=== PATIENT | male | born 1955 | race Caucasian/White ===

== ENCOUNTER 2020-01-20 10:15 | Emergency (ER) | payer OTHER, SELFPAY ==
--- NOTE | 2020-01-20 | RAD_ITS ---
STUDY: X-RAY CHEST REASON FOR EXAM: Male, 64 years old. COUGH, INCREASED WEAKNESS, FEVER, LOSS OF TASTE AND SMELL -- SYMPTOMS SINCE 01/08 TECHNIQUE: Single AP portable view of the chest. COMPARISON: None. FINDINGS: Ill-defined subpleural groundglass opacities are seen more prominent in the lung bases , may represent atypical pneumonia or viral pneumonia (COVID-19 ?). There is no demonstrated pleural abnormality. Normal size heart. Normal mediastinum and kayy. Normal visualized pulmonary arteries. Normal visualized aortic arch and descending thoracic aorta. Normal visualized thoracic spine. Normal visualized ribs, clavicles, and shoulders. There is no demonstrated abnormality of the visualized soft tissue structures of the upper abdomen. RAD/Chest 1 View (Portable) IMPRESSION: Ill-defined subpleural groundglass opacities are seen more prominent in the lung bases , may represent atypical pneumonia or viral pneumonia (COVID-19 ?). Electronically Signed: Chris Marr, at 11:58 EDT Tel , Service support ,
[2020-01-20 10:18] VITALS: BP 121/57; PULSE 76; RESP 17; TEMP 36.7; O2SAT 95; BMI 25.7
[2020-01-20] MEDS: 0.9% Normal Saline 1,000 ML 1000 ML IV (10:58)
[2020-01-20 11:00] LABS: Absolute Lymphocyte Count 0.88 X10^3/uL (0.83-4.51); Absolute Neutrophil Count 8.4 X10^3/uL (2.0-7.7); Basophil# 0.02 X10^3/uL; Basophil% 0.2 % (0-1); Eosinophil# 0.11 X10^3/uL; Eosinophils% 1.1 % (0-5); Hematocrit 40.4 % (40-54); Lymphocyte # 0.88 X10^3/ul (4.0); Lymphocyte % 8.8 % (19-41); Mean Corp Hgb Conc 32.2 g/dL (32-36); Mean Corpuscular Hgb 28.7 pg (27.0-32.0); Mean Corpuscular Volume 89.2 fL (80-94); Mean Platelet Vol. 9.2 fl (6.2-12.0); Monocyte# 0.54 X10^3/uL; Monocyte% 5.4 % (0-10); NRBC Flagged by Analyzer 0 % (0-5); Neutrophil # 8.35 X10^3/uL (2.7-7.7); Neutrophil % 83.6 % (47-70); Platelet Count 304 K/mm3 (150-450); RBC Distribution Width CV 13.2 % (11.6-14.6); Red Blood Count 4.53 M/mm3 (4.6-6.2)
[2020-01-20 11:17] LABS: ALB/GLOB Ratio 0.6 RATIO (0.9-2.4); AST(SGOT) 69 U/L (15-37); Alanine Aminotransfer ALT/SGPT 120 U/L (16-61); Albumin, Serum 2.6 g/dL (3.2-5.0); Alkaline Phosphatase 182 U/L (45-117); Anion Gap 5 (5-15); BUN 22 mg/dL (7-18); BUN/Creat Ratio 13.8 RATIO (10-20); Calcium,Total 8.6 mg/dL (8.5-10.1); Chloride 104 mmol/L (98-107); Creatinine, Serum 1.59 mg/dL (0.70-1.30); EST Glomerular Filtration Rate 47 mL/min (>60); Est Glom Filt Rate - Afr Amer 57 mL/min (>60); Estimated Creatinine Clearance 46.94 ml/min; Globulin 4.4 g/dL (2.2-4.2); Glucose 148 mg/dL (74-106); Magnesium 2.5 mg/dL (1.6-2.6); Potassium 3.6 mmol/L (3.5-5.1); Sodium Level 138 mmol/L (136-145)
--- NOTE | 2020-01-20 11:28 | ED.VIS.URI ---
History of Present Illness Chief Complaint: Cough Narrative: Patient presenting for evaluation secondary to a cough. Patient believes that he has been suffering with coronavirus symptoms for approximately a week. Patient's had symptoms prior to this, about a week ago the patient developed generalized fatigue, diarrhea, fevers as high as 102 and over the course of the last 3 days he has developed a cough and some shortness of breath. Patient states that he also lost his sense of smell and taste and has had significantly decreased appetite. He has been able to tolerate fluids. Patient denies any underlying history of lung disease. He does have a history of hypothyroidism but is been able to take his medications. He is otherwise healthy. Review of systems otherwise negative. Past Medical History - Allergies and Home Meds Allergies/Adverse Reactions: Allergies lactose Allergy (Verified 01/20/20 10:16) Diarrhea Penicillins Allergy (Verified 01/20/20 10:16) Hives Primary Care Physician: Poli Monahan MD [Primary Care Provider] - Prior records reviewed: Yes Past Medical History: - - Hypothyroidism Lives: Spouse/ Significant Other Smoking Status: Never smoker Alcohol: None Drugs: None Review of Systems General: Reports: Fever, Malaise Eyes: Denies: Visual changes - bilaterally, Diplopia ENT: Denies: Rhinorrhea, Sore throat Cardiovascular: Denies: Chest pain, Palpitations Respiratory: Reports: Cough, Dyspnea on exertion Gastrointestinal: Reports: Diarrhea Genitourinary: Denies: Dysuria, Hematuria, Frequency Musculoskeletal: Denies: Back pain, Extremity Pain Skin: Denies: Rash, Wounds Neurological: Denies: Headache, Weakness, Numbness Physical Exam Vital Signs/Narrative: Vital Signs Temp Pulse Resp BP Pulse Ox 01/20/20 10:18 98.1 F 76 17 121/57 H 95 Inital Vital Signs reviewed: Yes General: Well nourished, Well developed Head: Normocephalic, Atraumatic Eyes: Perrl, EOMI Ears: Normal external canal, TM's clear Nose: Normal Inspection, No Rhinorrhea Mouth/Throat: Normal Inspection, No Posterior Erythema, Dry Mucous Membranes Neck: Supple, Nontender Cardiovascular: Regular rate, Regular rhythm, No murmurs Respiratory: No distress, CTA bilaterally, Chest nontender Abdomen: Soft, Nontender, Nondistended, Normal bowel sounds Back: Nontender, Normal Inspection Extremities: Nontender, No edema Skin: Normal color, No rash Neurological: Alert, Oriented x3, Cranial nerves II-XII grossly intact, Normal Strength, Normal Sensation Psychological: Normal affect Diagnostic/Tx/Re-eval Chest X-Ray - ED: Read by ED Physician, - - Ill-defined infiltrates consistent with coronavirus infection Clinical Impression(s) from Imaging Studies Chest X-Ray 01/20/20 00:00 IMPRESSION: Ill-defined subpleural groundglass opacities are seen more prominent in the lung bases , may represent atypical pneumonia or viral pneumonia (COVID-19 ?). Electronically Signed: Chris Marr, at 11:58 EDT Tel , Service support , Laboratory Data 01/20/20 01/20/20 10:51 10:51 WBC 10.0 RBC 4.53 L Hgb 13.0 Hct 40.4 MCV 89.2 MCH 28.7 MCHC 32.2 RDW Std Deviation 43.0 RDW Coeff of Alisa 13.2 Plt Count 304 MPV 9.2 Immature Gran % (Auto) 0.900 Neut % (Auto) 83.6 H Lymph % (Auto) 8.8 L [place] % (Auto) 5.4 Eos % (Auto) 1.1 Baso % (Auto) 0.2 Absolute Neuts (auto) 8.4 H Absolute Lymphs (auto) 0.88 Nucleated RBC % 0 Sodium 138 Potassium 3.6 Chloride 104 Carbon Dioxide 29.0 Anion Gap 5 BUN 22 H Creatinine 1.59 H Estim Creat Clear Calc 46.94 Est GFR (MDRD) Af Amer 57 L Est GFR (MDRD) Non-Af 47 L BUN/Creatinine Ratio 13.8 Glucose 148 H Calcium 8.6 Magnesium 2.5 Total Bilirubin 1.30 H AST 69 H ALT 120 H Alkaline Phosphatase 182 H Total Protein 7.0 Albumin 2.6 L Globulin 4.4 H Albumin/Globulin Ratio 0.6 L - Medical Decision Making Patient presented secondary to possible complications from coronavirus. He is not hypoxic. IV was established she was given a gentle fluid bolus. Patient's creatinine is 1.5, there is no prior for comparison. No significant electrolyte derangement. Modest elevation of the patient's transaminases, likely secondary to a coronavirus infection. Chest x-ray also confirmed this. Patient at this point is having complications of coronavirus. Superinfection with pneumonia is not totally ruled out, patient will be given azithromycin. He has self treated at home with albuterol, and had some modest improvement. He will also be given a prescription for this. He was educated on signs and symptoms which to return. ED Disposition - Plan for ED Patient: Disposition: Home or Assisted Living Diagnosis: COVID-19 Instructions: ED FLU Adult Prescriptions: Albuterol Aerosols [Ventolin Aerosols] 2.5 mg INHALATION Q4H PRN #25 vial Prescription Printed Azithromycin [Zithromax Z-Lexx] 250 mg PO UD #1 box Prescription Printed Referrals: Poli Monahan MD [Primary Care Provider] - 1 Week if not improving
[2020-01-20 11:43] VITALS: BP 148/67; PULSE 84; RESP 16; TEMP 36.6; O2SAT 97
[2020-01-20 12:36] VITALS: BP 118/71; PULSE 71; RESP 18; TEMP 36.7; O2SAT 99
== END 2020-01-20 12:37 | disposition home or self-care (01) ==
PROVIDERS: Emergency Provider Emergency Medicine
DX: U07.1 COVID-19 (principal); E03.9 Hypothyroidism, unspecified; Z88.0 Allergy status to penicillin
CPT/HCPCS: 71045; 80053; 83735; 85025; 87635; 99282; J7030; U0003

== ENCOUNTER 2025-04-15 08:37 | Day surgery (SDC) | payer MEDICARE, SELFPAY ==
[2025-04-15] VITALS (9 sets, daily range): BP systolic 85–112; BP diastolic 45–69; PULSE 57–66; RESP 14–18; TEMP 36.2–36.7; O2SAT 95–98; BMI 27.3
--- OUTSIDE RECORDS SUMMARY | 2025-04-15 09:00 | XMS RPT_ITS | CCD ---
Author Organization [facility] Care Team Providers Care Bulkhead Carpenter Name Role Phone ADAMARIS MONAHAN Consulting Unavailable ETHAN HOPKINS APRN Admitting Unavailab ETHAN Barbour APRN Primary Care Unavailab ETHAN Barbour APRN Attending Unavailab le PROVIDER, UNKNOWN Consulting Unavailable PROVIDER, UNKNOWN Consulting Unavailable PROVIDER, UNKNOWN Consulting Unavailable Allergies Allergy Classification Reported Allergen(s) Allergy Type Date of Onset Reaction(s) Facility (1 source) Aspirin Drug Allergy [facility] (1 source) Penicillins Drug allergy (disorder) [facility] Results Test Name Value Interpretation Reference Range Facility CBC (INCLUDES DIFF/PLT)on Basophils (Bld) [#/Vol] 0.04 10*3/uL Normal 0-200 [facility] Comment on above: Performed By: #### 1 0231, 890, 5499 #### [facility] [place] [address] [employer] R[address] Attendant: Quan French MD Basophils/100 WBC (Bld) 0.5 % Normal [facility] Comment on above: Performed By: #### 1 0231, 7599, 7899 #### [facility] [place] [address] [employer] Attendant: Quan French MD Eosinophils (Bld) [#/Vol] 0.464 10*3/uL Normal 15-500 [facility] Comment on above: Performed By: #### 1 0231, 853, 4199 #### [facility] [place] [address] [employer] Attendant: Quan French MD Eosinophils/100 WBC (Bld) 5.8 % Normal [facility] Comment on above: Performed By: #### 1 023, 7599, 6399 #### [facility] of [place] [address] [employer] [address] Attendant: Quan French MD Erythrocyte distribution width (RBC) [Ratio] 13.2 % Normal 11.0-15.0 [facility] Comment on above: Performed By: #### 1 023, 7599, 6399 #### [facility] [place] [address] [employer] [address] Attendant: Quan French MD Hematocrit (Bld) [Volume fraction] 44.5 % Normal 38.5-50.0 [facility] Comment on above: Performed By: #### 1 023, 7599, 6399 #### [facility] [place] [address] [address] Attendant: Quan French MD Hemoglobin (Bld) [Mass/Vol] 14.3 g/dL Normal 13.2-17.1 [facility] Comment on above: Performed By: #### 1 023, 7599, 6399 #### [facility] [place] [address] [employer] [address] Attendant: Quan French MD Lymphocytes (Bld) [#/Vol] 2.76 10*3/uL Normal 850-3900 [facility] Comment on above: Performed By: #### 1 023, 7599, 6399 #### [facility] [place] [address] [address] Attendant: Quan French MD Lymphocytes/100 WBC (Bld) 34.5 % Normal [facility] Comment on above: Performed By: #### 1 0231, 7599, 6399 #### [facility] [place] [address] [employer] [address] Attendant: Quan French MD MCH (RBC) [Entitic mass] 29.9 pg Normal 27.0-33.0 [facility] Comment on above: Performed By: #### 1 0231, 7599, 6399 #### [facility] [place] [address] [employer] [address] Attendant: Quan French MD MCHC (RBC) [Mass/Vol] 32.1 g/dL Normal 32.0-36.0 [facility] Comment on above: Result Comment: For adults, a slight decrease in the calculated MCHC value (in the range of 30 to 32 g/dL) is most likely not clinically significant; however, it should be interpreted with caution in correlation with other red cell parameters and the patient's clinical condition. Performed By: #### 1 023, 7599, 6399 #### [facility] [place] [address] [employer] [address] Attendant: Quan French MD MCV (RBC) [Entitic vol] 92.9 fL Normal 80.0-100.0 [facility] Comment on above: Performed By: #### 1 230, 7599, 6399 #### [facility] [place] [address] [employer] [address] Attendant: Quan French MD Monocytes (Bld) [#/Vol] 0.584 10*3/uL Normal 200-950 [facility] Comment on above: Performed By: #### 1 023, 7599, 6399 #### [facility] [place] [address] [address] Attendant: Quan French MD Monocytes/100 WBC (Bld) 7.3 % Normal [facility] Comment on above: Performed By: #### 1 023, 7599, 6399 #### [facility] [place] [address] [address] Attendant: Quan French MD Neutrophils (Bld) [#/Vol] 4.152 10*3/uL Normal 6133-6459 [facility] Comment on above: Performed By: #### 1 023, 7599, 6399 #### [facility] [place] [address] [address] Attendant: Quan French MD Neutrophils/100 WBC (Bld) 51.9 % Normal [facility] Comment on above: Performed By: #### 1 0231, 0, 6399 #### [facility] [place] [address] [employer] [address] Attendant: Quan French MD Platelet mean volume (Bld) [Entitic vol] 10.1 fL Normal 7.5-12.5 [facility] Comment on above: Performed By: #### 1 0231, 7599, 6399 #### [facility] of [address], [address] [place] [address] Ice Rink Attendant: Quan French MD Platelets (Bld) [#/Vol] 263 10*3/uL Normal 140-400 [facility] Comment on above: Performed By: #### 1 0231, 7599, 6399 #### [facility] of [address], [address] [place] [address] Ice Rink Attendant: Quan French MD RBC (Bld) [#/Vol] 4.79 10*6/uL Normal 4.20-5.80 [facility] Comment on above: Performed By: #### 1 0231, 7599, 6399 #### [facility] [place] [address] [address] Attendant: Quan French MD WBC (Bld) [#/Vol] 8.0 10*3/uL Normal 3.8-10.8 [facility] Comment on above: Performed By: #### 1 023, 7599, 6399 #### [facility] [place] [address] [address] Attendant: Quan French MD [facility] 01-31-2025 Albumin [Mass/Vol] 4.5 g/dL Normal 3.6-5.1 [facility] Comment on above: Performed By: #### 1 0231, 760, 6399 #### [facility] [place] [address] [employer] [address] Attendant: Quan French MD Albumin/Globulin [Mass ratio] 1.7 {ratio} Normal 1.0-2.5 [facility] Comment on above: Performed By: #### 1 0231, 7599, 6399 #### [facility] [place] [address] [employer] [address] Attendant: Quan French MD ALP [Catalytic activity/Vol] 68 U/L Normal 35-144 [facility] Comment on above: Performed By: #### 1 0231, 7599, 6399 #### [facility] of [address], [address] [place] [address] [employer] Rink Attendant: Quan French MD ALT [Catalytic activity/Vol] 16 U/L Normal 9-46 [facility] Comment on above: Performed By: #### 1 023, 7599, 6399 #### [facility] [place] [address] [employer] [address] Attendant: Quan French MD AST [Catalytic activity/Vol] 18 U/L Normal 10-35 [facility] Comment on above: Performed By: #### 1 023, 7599, 6399 #### [facility] [place] [address] [employer] [address] Attendant: Quan French MD Bilirubin [Mass/Vol] 1.9 mg/dL High 0.2-1.2 [facility] Comment on above: Performed By: #### 1 230, 7599, 6399 #### [facility] [place] [address] [employer] [address] Attendant: Quan French MD Calcium [Mass/Vol] 9.3 mg/dL Normal 8.6-10.3 [facility] Comment on above: Performed By: #### 1 023, 7599, 6399 #### [facility] [place] [address] [employer] [address] Attendant: Quan French MD Chloride [Moles/Vol] 105 mmol/L Normal 98-110 [facility] Comment on above: Performed By: #### 1 023, 7599, 6399 #### [facility] of [address], [address] [place] [address] Ice Rink Attendant: Quan French MD CO2 [Moles/Vol] 26 mmol/L Normal 20-32 [facility] Comment on above: Performed By: #### 1 0231, 7600, 6399 #### [facility] of [address], [address] [place] [address] [employer] Rink Attendant: Quan French MD Creatinine [Mass/Vol] 1.50 mg/dL High 0.70-1.35 [facility] Comment on above: Performed By: #### 1 0231, 7599, 6399 #### [facility] [place] [address] [address] Attendant: Quan French MD GFR/1.73 sq M.predicted among non-blacks MDRD (S/P/Bld) [Vol rate/Area] 50 mL/min/{1.73_m2} Low > OR = 60 [facility] Comment on above: Performed By: #### 1 023, 7599, 6399 #### [facility] [place] [address] [address] Attendant: Quan French MD Globulin (S) [Mass/Vol] 2.6 g/dL Normal 1.9-3.7 [facility] Comment on above: Performed By: #### 1 023, 7599, 6399 #### [facility] [place] [address] [employer] [address] Attendant: Quan French MD Glucose [Mass/Vol] 96 mg/dL Normal 65-99 [facility] Comment on above: Result Comment: Fasting reference interval Performed By: #### 1 0231, 7599, 6399 #### [facility] [place] [address] [employer] [address] Attendant: Quan French MD Potassium [Moles/Vol] 4.3 mmol/L Normal 3.5-5.3 [facility] Comment on above: Performed By: #### 1 0231, 7600, 6399 #### [facility] of [address], [address] [place] [address] Ice Rink Attendant: Quan French MD Protein [Mass/Vol] 7.1 g/dL Normal 6.1-8.1 [facility] Comment on above: Performed By: #### 1 0231, 7600, 6399 #### [facility] of [address], [address] [place] [address] Ice Rink Attendant: Quan French MD Sodium [Moles/Vol] 141 mmol/L Normal 135-146 [facility] Comment on above: Performed By: #### 1 0231, 0, 6399 #### [facility] of [address], [address] [place] [address] [employer] Rink Attendant: Quan French MD Urea nitrogen [Mass/Vol] 23 mg/dL Normal 7-25 [facility] Comment on above: Performed By: #### 1 0231, 7599, 6399 #### [facility] of [address], [address] [place] [address] [employer] Rink Attendant: Quan French MD Urea nitrogen/Creatinine [Mass ratio] 15 mg/mg Normal 6-22 [facility] Comment on above: Performed By: #### 1 0231, 7599, 6399 #### [facility] of [address], [address] [place] [address] [employer] Rink Attendant: Quan French MD LIPID PANEL, [address] Cholesterol [Mass/Vol] 214 mg/dL High <200 [facility] Comment on above: Performed By: #### 1 0231, 7600, 6399 #### [facility] of [address], [address] [place] [address] [employer] Rink Attendant: Quan French MD Cholesterol in HDL [Mass/Vol] 51 mg/dL Normal > OR = 40 [facility] Comment on above: Performed By: #### 1 0231, 7600, 6399 #### [facility] of [address], [address] [place] [address] [employer] Rink Attendant: Quan French MD Cholesterol in LDL [Mass/Vol] 141 mg/dL High [facility] Comment on above: Result Comment: Refe rence range: <100 Desirable range <100 mg/dL for primary prevention; <70 mg/dL for patients with CHD or diabetic patients with > or = 2 CHD risk factors. LDL-C is now calculated using the Ariela calculation, which is a validated novel method providing better accuracy than the Friedewald equation in the estimation of LDL-C. Boone SS et al. NATALY. 2013;310(19): 5189-2169 (http://education.Snapcious/faq/RFD178) Performed By: #### 1 0231, 0, 1199 #### [facility] [address], [address] [place] [address] [employer] Rink Attendant: Quan French MD Cholesterol.total/C holesterol in HDL [Mass ratio] 4.2 {ratio} Normal <5.0 [facility] Comment on above: Performed By: #### 1 023, 7599, 7099 #### [facility] [address], [address] [place] [address] [employer] Rink Attendant: Quan French MD NON HDL CHOLESTEROL 163 mg/dL (calc) High <130 [facility] Comment on above: Result Comment: For patients with diabetes plus 1 major ASCVD risk factor, treating to a non-HDL-C goal of <100 mg/dL (LDL-C of <70 mg/dL) is considered a therapeutic option. Performed By: #### 1 023, 7599, 4999 #### [facility] [address], [address] [place] [address] [employer] Rink Attendant: Quan French MD Triglyceride [Mass/Vol] 108 mg/dL Normal <150 [facility] Comment on above: Performed By: #### 1 023, 325, 6699 #### [facility] [address], [address] [place] [address] Ice Rink Attendant: Quan French MD T3, FREE [CCL]on 08-27-2024 Free T3 [Mass/Vol] 2.7 pg/mL Normal 2.3-4.1 [facility] Comment on above: Result Comment: [facility] [address] [id number] Andrea Gerard III, M.D. [id number] Performed By: #### 2 69842 #### [facility],[address] [place] [address] TSHon 08-26-2024 TSH Qn 0.85 m[IU]/L Normal 0.35 - 3.74 [facility] Comment on above: Performed By: #### 2 46241 #### [facility],[address] [place], [place] [address] CORONAVIRUS 19, DARWIN SENDOUTo n 01-21-2020 COVID-19,DARWIN Not Detected Normal Not Detected [facility] Comment on above: Result Comment: This nucleic acid amplification test was developed and its performance characteristics determined by [employer]. Nucleic acid amplification tests include PCR and TMA. This test has not been FDA cleared or approved. This test has been authorized by FDA under an Emergency Use Authorization (EUA). This test is only authorized for the duration of time the declaration that circumstances exist justifying the authorization of the emergency use of in vitro diagnostic tests for detection of SARS-CoV-2 virus and/or diagnosis of COVID-19 infection under section 564(b)(1) of the Act, 21 U.S.C. 360bbb-3(b) (1), unless the authorization is terminated or revoked sooner. When diagnostic testing is negative, the possibility of a false negative result should be considered in the context of a patient's recent exposures and the presence of clinical signs and symptoms consistent with COVID-19. An individual without symptoms of COVID-19 and who is not shedding SARS-CoV-2 virus would expect to have a negative (not detected) result in this assay. Performed By: #### L 3400.2408 #### [facility] (refer to report for specific site) refer to report for address and phone number CBC W/Diff, Automatedon 10-0 Absolute Neut 8.4 X10 3/uL High 2.0-7.7 [facility] Comment on above: Performed By: #### L 100.0100 #### [facility] [address] [place], [address] Basophils/100 WBC (Bld) 0.2 % Normal 0-1 [facility] Comment on above: Performed By: #### L 100.0100 #### [facility] [address] [place], [address] Eosinophils/100 WBC (Bld) 1.1 % Normal 0-5 [facility] Comment on above: Performed By: #### L 100.0100 #### [facility] [address] [place], [address] Erythrocyte distribution width (RBC) [Ratio] 13.2 % Normal 11.6-14.6 [facility] Comment on above: Performed By: #### L 100.0100 #### [facility] [address] [place], [address] Hematocrit (Bld) [Volume fraction] 40.4 % Normal 40-54 [facility] Comment on above: Performed By: #### L 100.0100 #### [facility] [address] [place], [address] Hemoglobin (Bld) [Mass/Vol] 13.0 g/dL Normal 13.0-16.5 [facility] Comment on above: Performed By: #### L 100.0100 #### [facility] [address] [place], [address] IM GRAN % 0.900 % Normal 0.0-0.9 [facility] Comment on above: Result Comment: IG% - Immature Granulocytes (promyelocytes, myelocytes and metamyelocytes) > 1% indicates that a LEFT SHIFT is Present. Performed By: #### L 100.0100 #### [facility] [address] [place], [address] Lymphocytes (Bld) [#/Vol] 0.88 X10 3/uL Normal 0.83-4.51 [facility] Comment on above: Performed By: #### L 100.0100 #### [facility] [address] [place], [address] Lymphocytes/100 WBC (Bld) 8.8 % Low 19-41 [facility] Comment on above: Performed By: #### L 100.0100 #### [facility] [address] [place], [address] MCH (RBC) [Entitic mass] 28.7 pg Normal 27.0-32.0 [facility] Comment on above: Performed By: #### L 100.0100 #### [facility] [address] [place], [address] MCHC (RBC) [Mass/Vol] 32.2 g/dL Normal 32-36 [facility] Comment on above: Performed By: #### L 100.0100 #### [facility] [address] [place], [address] MCV (RBC) [Entitic vol] 89.2 fL Normal 80-94 [facility] Comment on above: Performed By: #### L 100.0100 #### [facility] [address] [place], [address] Monocytes/100 WBC (Bld) 5.4 % Normal 0-10 [facility] Comment on above: Performed By: #### L 100.0100 #### [facility] [address] [place], [address] Neutrophils/100 WBC (Bld) 83.6 % High 47-70 [facility] Comment on above: Performed By: #### L 100.0100 #### [facility] [address] [place], [address] NRBC, FLAGGED 0 % Normal 0-5 [facility] Comment on above: Performed By: #### L 100.0100 #### [facility] [address] [place], [address] Platelet mean volume (Bld) [Entitic vol] 9.2 fL Normal 6.2-12.0 [facility] Comment on above: Performed By: #### L 100.0100 #### [facility] [address] [place], [address] Platelets (Bld) [#/Vol] 304 10*3/uL Normal 150-450 [facility] Comment on above: Performed By: #### L 100.0100 #### [facility] [address] [place], [address] RBC (Bld) [#/Vol] 4.53 M/mm3 Low 4.6-6.2 [facility] Comment on above: Performed By: #### L 100.0100 #### [facility] [address] [place], [address] RDW SD 43.0 fl Normal 35.1-43.9 [facility] Comment on above: Performed By: #### L 100.0100 #### [facility] [address] [place], [address] WBC (Bld) [#/Vol] 10.0 10*3/uL Normal 4.4-11.0 [facility] Comment on above: Performed By: #### L 100.0100 #### [facility] [address] [place], [address] Chest 1 View (Portable)on Chest 1 View (Portable) [facility] [address] [place] [address] Chest 1 View (Portable) MR#: [id number] Acct: [id number] Name: BRANDIE HESS ARIA Rep #: [id number] : 1955 M 64 From: Chris Fields PCP: Dr. Poli Monahan MD Status: REG ER Study: Chest 1 View (Portable) Date of Exam: 01/20/20 Exam# [id number] Ordering Dr: Edin Guadarrama MD STUDY: X-RAY CHEST REASON FOR EXAM: Male, 64 years old. COUGH, INCREASED WEAKNESS, FEVER, LOSS OF TASTE AND SMELL -- SYMPTOMS SINCE 01/08 TECHNIQUE: Single AP portable view of the chest. COMPARISON: None. FINDINGS: Ill-defined subpleural groundglass opacities are seen more prominent in the lung bases , may represent atypical pneumonia or viral pneumonia (COVID-19 ?). There is no demonstrated pleural abnormality. Normal size heart. Normal mediastinum and kayy. Normal visualized pulmonary arteries. Normal visualized aortic arch and descending thoracic aorta. Normal visualized thoracic spine. Normal visualized ribs, clavicles, and shoulders. There is no demonstrated abnormality of the visualized soft tissue structures of the upper abdomen. RAD/Chest 1 View (Portable) IMPRESSION: Ill-defined subpleural groundglass opacities are seen more prominent in the lung bases , may represent atypical pneumonia or viral pneumonia (COVID-19 ?). Electronically Signed: Chris Marr at 11:58 EDT Tel , Service support , CC: Dr. Poli Monahan MD; Dr. Edin Guadarrama MD Surfacing Machine Operator: Signed Normal [facility] Comprehensive Metabolic Prof ilon 01-20-2020 Albumin [Mass/Vol] 2.6 g/dL Low 3.2-5.0 [facility] Comment on above: Performed By: #### L 501.5200, L500.4050 #### [facility] [place], [address] Albumin/Globulin [Mass ratio] 0.6 {ratio} Low 0.9-2.4 [facility] Comment on above: Performed By: #### L 501.5200, L500.4050 #### [facility] [address] [place], [address] ALK P 182 U/L High 45-117 [facility] Comment on above: Performed By: #### L 501.5200, L500.4050 #### [facility] [address] [place], [address] ALT [Catalytic activity/Vol] 120 U/L High 16-61 [facility] Comment on above: Performed By: #### L 501.5200, L500.4050 #### [facility] [address] [place], [address] AST [Catalytic activity/Vol] 69 U/L High 15-37 [facility] Comment on above: Performed By: #### L 501.5200, L500.4050 #### [facility] [address] [place], [address] Bilirubin [Mass/Vol] 1.30 mg/dL High 0.20-1.00 [facility] Comment on above: Result Comment: For patients on eltrombopag therapy, use of Dimension [place] TBIL is not recommended. Performed By: #### L 501.5200, L500.4050 #### [facility] [address] [place], [address] Calcium [Mass/Vol] 8.6 mg/dL Normal 8.5-10.1 [facility] Comment on above: Performed By: #### L 501.5200, L500.4050 #### [facility] [address] [place], [address] Chloride [Moles/Vol] 104 mmol/L Normal 98-107 [facility] Comment on above: Performed By: #### L 501.5200, L500.4050 #### [facility] [address] [place], [address] CO2 [Moles/Vol] 29.0 mmol/L Normal 21.0-32.0 [facility] Comment on above: Performed By: #### L 501.5200, L500.4050 #### [facility] [address] [place], [address] Creatinine [Mass/Vol] 1.59 mg/dL High 0.70-1.30 [facility] Comment on above: Result Comment: The validity of the calculated GFR AND GFRAA in patients over 70 years has not been determined. Clinical correlation is essential. Performed By: #### L 501.5200, L500.4050 #### [facility] [address] [place], [address] EST GFR - AA 57 mL/min Low >60 [facility] Comment on above: Result Comment: Afri can Bhutanese GFR Calc Performed By: #### L 501.5200, L500.4050 #### [facility] [address] [place], [address] Estimated CRCL 46.94 ml/min Normal [facility] Comment on above: Performed By: #### L 501.5200, L500.4050 #### [facility] [address] [place], [address] GAP 5 Normal 5-15 [facility] Comment on above: Performed By: #### L 501.5200, L500.4050 #### [facility] [address] [place], [address] GFR/1.73 sq M predicted among non-blacks MDRD (S/P/Bld) [Vol rate/Area] 47 mL/min/{1.73_m2} Low >60 [facility] Comment on above: Result Comment: Non- GFR Calc Performed By: #### L 501.5200, L500.4050 #### [facility] [address] [place], [address] Globulin (S) [Mass/Vol] 4.4 g/dL High 2.2-4.2 [facility] Comment on above: Performed By: #### L 501.5200, L500.4050 #### [facility] [address] [place], [address] Glucose [Mass/Vol] 148 mg/dL High 74-106 [facility] Comment on above: Result Comment: Fast ing Glucose result greater than or equal to 126 mg/dL suggests DIABETES MELLITUS per A.D.A. criteria. Please note revised GLUCOSE reference range effective 2017. Performed By: #### L 501.5200, L500.4050 #### [facility] [address] [place], [address] Potassium [Moles/Vol] 3.6 mmol/L Normal 3.5-5.1 [facility] Comment on above: Performed By: #### L 501.5200, L500.4050 #### [facility] [address] [place], [address] Sodium [Moles/Vol] 138 mmol/L Normal 136-145 [facility] Comment on above: Performed By: #### L 501.5200, L500.4050 #### [facility] [address] [place], [address] T PROT 7.0 g/dL Normal 6.4-8.2 [facility] Comment on above: Performed By: #### L 501.5200, L500.4050 #### [facility] [address] [place], [address] Urea nitrogen [Mass/Vol] 13.8 RATIO Normal 10-20 [facility] Comment on above: Performed By: #### L 501.5200, L500.4050 #### [facility] [address] [place], [address] Urea nitrogen [Mass/Vol] 22 mg/dL High 7-18 [facility] Comment on above: Performed By: #### L 501.5200, L500.4050 #### [facility] [address] [place], [address] Emergency Department Summary on 01-20-2020 Emergency Department Summary [facility] Medical Records Department [address] [facility] [place] [address] Emergency Department Summary 01/20/20 MR#: [id number] Acct: [id number] Name: BRANDIE HESS Rep #: [id number] : 1955 64 From: Edin Guadarrama MD PCP: Dr. Poli Monahan MD Status:REG ER History of Present Illness Chief Complaint: Cough Narrative: Patient presenting for evaluation secondary to a cough. Patient believes that he has been suffering with coronavirus symptoms for approximately a week. Patient's had symptoms prior to this, about a week ago the patient developed generalized fatigue, diarrhea, fevers as high as 102 and over the course of the last 3 days he has developed a cough and some shortness of breath. Patient states that he also lost his sense of smell and taste and has had significantly decreased appetite. He has been able to tolerate fluids. Patient denies any underlying history of lung disease. He does have a history of hypothyroidism but is been able to take his medications. He is otherwise healthy. Review of systems otherwise negative. Past Medical History - Allergies and Home Meds Allergies/Adverse Reactions: Allergies lactose Allergy (Verified 01/20/20 10:16) Diarrhea Penicillins Allergy (Verified 01/20/20 10:16) Hives Primary Care Physician: Poli Monahan MD [Primary Care Provider] - Prior records reviewed: Yes Past Medical History: - - Hypothyroidism Lives: Spouse/ Significant Other Smoking Status: Never smoker Alcohol: None Drugs: None Review of Systems General: Reports: Fever, Malaise Eyes: Denies: Visual changes - bilaterally, Diplopia ENT: Denies: Rhinorrhea, Sore throat Cardiovascular: Denies: Chest pain, Palpitations Respiratory: Reports: Cough, Dyspnea on exertion Gastrointestinal: Reports: Diarrhea Genitourinary: Denies: Dysuria, Hematuria, Frequency Musculoskeletal: Denies: Back pain, Extremity Pain Skin: Denies: Rash, Wounds Neurological: Denies: Headache, Weakness, Numbness Physical Exam Vital Signs/Narrative: Vital Signs Temp Pulse Resp BP Pulse Ox 01/20/20 10:18 98.1 F 76 17 121/57 H 95 Inital Vital Signs reviewed: Yes General: Well nourished, Well developed Head: Normocephalic, Atraumatic Eyes: Perrl, EOMI Ears: Normal external canal, TM's clear Nose: Normal Inspection, No Rhinorrhea Mouth/Throat: Normal Inspection, No Posterior Erythema, Dry Mucous Membranes Neck: Supple, Nontender Cardiovascular: Regular rate, Regular rhythm, No murmurs Respiratory: No distress, CTA bilaterally, Chest nontender Abdomen: Soft, Nontender, Nondistended, Normal bowel sounds Back: Nontender, Normal Inspection Extremities: Nontender, No edema Skin: Normal color, No rash Neurological: Alert, Oriented x3, Cranial nerves II-XII grossly intact, Normal Strength, Normal Sensation Psychological: Normal affect Diagnostic/Tx/Re-eval Chest X-Ray - ED: Read by ED Physician, - - Ill-defined infiltrates consistent with coronavirus infection Clinical Impression(s) from Imaging Studies Chest X-Ray 01/20/20 00:00 IMPRESSION: Ill-defined subpleural groundglass opacities are seen more prominent in the lung bases , may represent atypical pneumonia or viral pneumonia (COVID-19 ?). Electronically Signed: Chris Ohan, at 11:58 EDT Tel , Service support , Laboratory Data 01/20/20 01/20/20 10:51 10:51 WBC 10.0 RBC 4.53 L Hgb 13.0 Hct 40.4 MCV 89.2 MCH 28.7 MCHC 32.2 RDW Std Deviation 43.0 RDW Coeff of Alisa 13.2 Plt Count 304 MPV 9.2 Immature Gran % (Auto) 0.900 Neut % (Auto) 83.6 H Lymph % (Auto) 8.8 L [place] % (Auto) 5.4 Eos % (Auto) 1.1 Baso % (Auto) 0.2 Absolute Neuts (auto) 8.4 H Absolute Lymphs (auto) 0.88 Nucleated RBC % 0 Sodium 138 Potassium 3.6 Chloride 104 Carbon Dioxide 29.0 Anion Gap 5 BUN 22 H Creatinine 1.59 H Estim Creat Clear Calc 46.94 Est GFR (MDRD) Af Amer 57 L Est GFR (MDRD) Non-Af 47 L BUN/Creatinine Ratio 13.8 Glucose 148 H Calcium 8.6 Magnesium 2.5 Total Bilirubin 1.30 H AST 69 H ALT 120 H Alkaline Phosphatase 182 H Total Protein 7.0 Albumin 2.6 L Globulin 4.4 H Albumin/Globulin Ratio 0.6 L - Medical Decision Making Patient presented secondary to possible complications from coronavirus. He is not hypoxic. IV was established she was given a gentle fluid bolus. Patient's creatinine is 1.5, there is no prior for comparison. No significant electrolyte derangement. Modest elevation of the patient's transaminases, likely secondary to a coronavirus infection. Chest x-ray also confirmed this. Patient at this point is having complications of coronavirus. Superinfection with pneumonia is not totally ruled out, patient will be given azithromycin. He has self treated at home with albuterol, and had some modest improvement. He will also be given a prescription for this. He was educated on signs and symptoms which to return. ED Disposition - Plan for ED Patient: Disposition: Home or Assisted Living Diagnosis: COVID-19 Instructions: ED FLU Adult Prescriptions: Albuterol Aerosols [Ventolin Aerosols] 2.5 mg INHALATION Q4H PRN #25 vial Prescription Printed Azithromycin [Zithromax Z-Lexx] 250 mg PO UD #1 box Prescription Printed Referrals: Poli Monahan MD [Primary Care Provider] - 1 Week if not improving What to do if you have Problems For any increased pain, shortness of breath, bleeding, nausea or vomiting, chest pain, or any unexpected problems, contact your Primary Care Provider. Call [facility] ([phone]) or report to the closest Emergency Room. Call 911 if necessary. 01/20/20 8724 Date Edin Guadarrama MD Cosigner Signature (If Indicated): Date _ CC: Dr. Poli Monahan MD Normal [facility] Magnesiumon 01-20-2020 Magnesium [Mass/Vol] 2.5 mg/dL Normal 1.6-2.6 [facility] Comment on above: Performed By: #### L [id number], L500.4050 #### [facility] [address] [place], [address] Encounters Encounter Date Encounter Type Care Provider Facility Start: 08-26-2024 End: 08-26-2024 ambulatory ADAMARIS MONAHAN [facility] Summary Purpose Family History No Family History Records FoundNo Family History Records FoundNo Family History Records Found Advance Directives No Advanced Directives Records FoundNo Advanced Directives Records FoundNo Advanced Directives Records Found Additional Source Comments (unrecognized sect ion and content) No Status Records FoundNo Status Records FoundNo Status Records Found INFORMATION SOURCE (unrecogn ized section and content) DATE CREATED AUTHOR 01/25/2020 [facility] DATE CREATED AUTHOR AUTHOR'S ORGANIZ ATION 08/27/2024 [facility] DATE CREATED AUTHOR AUTHOR'S ORGANIZ ATION 02/02/2025 [facility] FOR RECORDS PERTAINING TO PATIENTS WHO ARE OR HAVE BEEN ENROLLED IN A CHEMICAL DEPENDENCY/SUBSTANCEABUSE PROGRAM, SOME INFORMATION MAY BE OMITTED. This clinical summary was aggregated from multiple sources. Caution should be exercised in using it in the provision of clinical care. This summary normalizes information from multiple sources, and as a consequence, information in this document may materially change the coding, format and clinical context of patient data. In addition, data may be omitted in some cases. CLINICAL DECISIONS SHOULD BE BASED ON THE PRIMARY CLINICAL RECORDS. [employer] provides no warranty or guarantee of the accuracy or completeness of information in this document.
[2025-04-15] MEDS: Lactated Ringers 1,000 ML 15 ML IV (09:11)
--- NOTE | 2025-04-15 09:55 | PCM.PRE.AN2 ---
ASA Classification* ASA Classification ASA Classification: 2 Assessment & Plan Anesthesia* Anesthesia Assessment Anesthesia Assessment: Discussed sedation and/or anesthesia options, risks, benefits, and alternatives with patient/parents/legal guardian/POA. Questions invited. The patient/parents/legal guardian/POA seems to understand and agrees to proceed with anesthesia plan. Reviewed the physical assessment, medical history, allergy history and patient home medications list prior to surgery/procedure/anesthetic and documented any changes. Performed airway and anesthesia risk assessments. Anesthesia Type Anesthesia Type: MAC History Source History Obtained from:: Patient and Chart Anesthesia Focused Assessment* Temperature: 98.1 F Pulse Rate: 66 Blood Pressure: 112/65 Respiratory Rate: 18 Pulse Ox: 97 Oxygen Delivery Method: Room Air Airway Assessment Mouth opens: >3 cm Mallampati Score: II Teeth Condition: Implants (Patient has a couple implants. They are tight.) Neck Range of motion (ROM): Limited ROM (Slight Decrease) Labs Anesthesia Preop lab: CBC WBC, (4.4-11.0) 10.0 K/mm3 01/20/20, 10:51 RBC, (4.6-6.2) 4.53 M/mm3 L 01/20/20, 10:51 Hgb, (13.0-16.5) 13.0 g/dL 01/20/20, 10:51 Hct, (40-54) 40.4 % 01/20/20, 10:51 Plt Count, (150-450) 304 K/mm3 01/20/20, 10:51 CHEMISTRY Potassium, (3.5-5.1) 3.6 mmol/L 01/20/20, 10:51 Sodium, (136-145) 138 mmol/L 01/20/20, 10:51 Magnesium, (1.6-2.6) 2.5 mg/dL 01/20/20, 10:51 BUN, (7-18) 22 mg/dL H 01/20/20, 10:51 Creatinine, (0.70-1.30) 1.59 mg/dL H 01/20/20, 10:51 Glucose, (74-106) 148 mg/dL H 01/20/20, 10:51 COAG Pre-Assessment Diagnosis/Proposed Procedure Planned Operative Procedure(s): Colonoscopy Anesthesia History Anesthesia History - supervising broker: Anesthesia History - supervising broker Hx Hospitalization No 04/07/25 14:33 Any Problems With Anesthesia No 04/07/25 14:33 Cholinesterase deficiency No 04/07/25 14:33 You/Your Family Experience No 04/07/25 14:33 fever (hyperthermia) with Relationship Recent Exposure to Contagious No 04/15/25 08:54 Disease Does patient have nerve No 04/07/25 14:33 stimulator Patient instructed to have device shut off --Does patient have Pacemaker No 04/15/25 08:54 or ICD? When Was Last Pacemaker Check QUESTION #4 FULL TEXT: You/Your Family Experience fever (hyperthermia) with Anesthesia Last Oral Intake Last Oral intake: Last Oral Intake NPO since 07:00 04/15/25 08:54 Meds taken in AM with sips of No 04/15/25 08:54 water? Meds patient instructed to take am of surgery Any additional information?: Yes NPO since: 07:00 (Patient had water at 7 AM.) Meds taken in AM with sips of water?: No PONV PONV - supervising broker: PONV - supervising broker Female No 04/07/25 14:33 HX of Motion Sickness Yes 04/07/25 14:33 HX of N/V After Surgery No 04/07/25 14:33 Non-Smoker Yes 04/07/25 14:33 Duration of Surgery greater No 04/07/25 14:33 than 60 minutes Number of Risk Factors 2 04/07/25 14:33 PONV Score Moderate Risk 04/07/25 14:33 Height & Weight Height & Weight: Anesthesia: Height & Weight Height 5 ft 9 in 04/15/25 08:54 Weight: 84 kg 04/15/25 08:54 Body Mass Index (BMI) 27.3 04/15/25 08:54 Respiratory Assessment Respiratory Assessment - supervising broker: Respiratory Tract Infection Hx - supervising broker Hx Respiratory Tract Infection No 04/07/25 14:33 STOP Sleep Apnea STOP Sleep Apnea - supervising broker: STOP Sleep Apnea - supervising broker Hx Hypertension No 04/07/25 14:33 Hx Sleep Apnea No 04/07/25 14:33 CPAP BIPAP Do you snore loudly (louder No 04/07/25 14:33 than talking or can be heard Do you often feel tired/ No 04/07/25 14:33 fatigued/ sleepy during daytime? Has anyone observed you stop No 04/07/25 14:33 breathing during sleep? STOP Results Negative 04/07/25 14:33 QUESTION #5 FULL TEXT : Do you snore loudly (louder than talking or can be heard through closed doors)? Tobacco Use History Tobacco Use History - supervising broker: Tobacco Use History - supervising broker Tobacco Use Smoking Status Never smoker 04/07/25 14:33 Hx Tobacco Use No 04/07/25 14:33 Years Smoking Packs Smoked per Day Smoking Cessation Date was within the last 15 years Hx Smoking Cessation Date Hx Smoking Cessation Counseling Hematologic Medial History Hematologic Hx - supervising broker: Hematologic Medical Hx - shared services representative Hx of Blood Transfusion No 04/07/25 14:33 Hx of Transfusion in last 3 No 04/07/25 14:33 Months Date of Last Transfusion (if within last 3 months) Ever experience any problems No 04/07/25 14:33 with transfusion(s)? Specify any problems Hx of Preganancy in last 3 N/A 04/07/25 14:33 Months Nurse Filling Out Transfusion JZOLLINGE 04/07/25 14:33 & Questions: Date: 04/07/25 04/07/25 14:33 Time: 14:35 04/07/25 14:33 Patient unable to answer at this time (ie. confused, unrespo /Reproduction History /Reproductive History - supervising broker: /Reproductive Hx- supervising broker Hx Now No 04/07/25 14:33 Gestational Age (in weeks): EDC: Hx Hx Para Hx Section SAB No 04/07/25 14:33 Does the father of the baby or his family experience fever w Father of the baby Malignant Hypertension history comment Active Medications Active Medications: Current Medications Generic Name Dose Route Start Last Admin Trade Name Freq PRN Reason Stop Dose Admin Lactated Ringer's 1,000 mls @ 15 mls/hr 04/15/25 08:45 04/15/25 09:11 IV 15 mls/hr .Q48H CALI Administration PFSH Medical History (Updated 04/15/25 @ 10:[address] Marquis Soto MD) Wears glasses Arthritis Dietary restriction Non-smoker Hx of seasonal allergies Positive colorectal cancer screening using Cologuard test Hypothyroid Hemorrhoids Home Medications ?Medication ?Instructions ?Recorded ?Last Taken ?Type levothyroxine 88 mcg tablet 88 mcg PO DAILY 01/20/20 04/14/25 History Bacillus coagulans 500 million 1 cap PO QDAY 03/04/25 04/10/25 History cell-lactase 3,000 unit capsule (Digestive Advantage Lactose Supprt) arginine HCl (L-arginine) 1,000 mg 1 mg PO .QD 03/04/25 04/11/25 History tablet budesonide 32 mcg/actuation nasal 1 spray intranasal QDAY 03/04/25 04/15/25 History spray multivitamin 1 tab PO QAM 03/04/25 04/11/25 History z binder 1 tab PO .QD 03/04/25 04/11/25 History omega 7-xiv-rcc-fish oil 1,200 mg cap PO 04/07/25 04/11/25 History (144 mg-216 mg) capsule (Fish Oil) Allergy/AdvReac Type Severity Reaction Status Date / Time lactose Allergy Diarrhea Verified 04/15/25 08:52 Penicillins Allergy Hives Verified 04/15/25 08:52 Surgical History (Updated 04/15/25 @ 10:[address] Marquis Soto MD) S/P radioactive iodine thyroid ablation H/O benign breast biopsy Hx of colonoscopy Social History Smoking Status: Never smoker alcohol intake: current Review of Systems (Anesthesia) ROS Narrative System reviewed and no additional complaints, except as documented.
--- NOTE | 2025-04-15 10:00 | COLBX_PTH ---
PATIENT: BRANDIE HESS LOC: EN U#:[id number] AGE/SX: 69/M ROOM: RE04/15/[address]: Dr. Joe Bermudez MD : 1955 BED: DIS: 04/15/2025 SPEC #: [id number] RECD: 04/15/25 11:07 STATUS: LAUREEN SAPPHIRE #: [id number] WILLY: 04/15/25 10:[address]: Joe Bermudez DEPT: SURGICAL PATHOLOGY RECD BY: Ariella Flores ENTERED: 04/15/25 12:17 SP TYPE: COLON BX OTHR DR: RENUKA Woo Tissues: Cecum, NOS Procedures: Surgery Specimen Level IV HEADER OPERATION: Colonoscopy PRE-OP DIAGNOSIS: Positive colorectal cancer screening using cologuard test TISSUE SUBMITTED: A. Cecal polyp MICROSCOPIC DIAGNOSIS A. Colon, cecum, polyp, biopsy: - Sessile serrated lesion MICROSCOPIC DESCRIPTION Slides are reviewed. GROSS DESCRIPTION A. Received is one container labeled with the patient name and designated cecal. The specimen consists of three irregular fragments of light guy soft tissue that in aggregate measure 0.7 x 0.4 x 0.2 cm. The specimen is totally submitted in one cassette. 04/15/2025 CPT: 01203
--- NOTE | 2025-04-15 10:18 | PCM.HP.STD ---
HPI - General General Date of Service: 04/15/25 Chief Complaint: Positive Cologuard HPI Narrative The patient is a 69-year-old male who presents today with a positive Cologuard test who is in need of a colonoscopy. He states his last colonoscopy was probably 20 to 25 years ago. He denies any GI issues or complaints. [facility] Medical History (Updated 04/15/25 @ 10:[address] Marquis Soto MD) Wears glasses Arthritis Dietary restriction Non-smoker Hx of seasonal allergies Positive colorectal cancer screening using Cologuard test Hypothyroid Hemorrhoids Home Medications ?Medication ?Instructions ?Recorded ?Last Taken ?Type levothyroxine 88 mcg tablet 88 mcg PO DAILY 01/20/20 04/14/25 History Bacillus coagulans 500 million 1 cap PO QDAY 03/04/25 04/10/25 History cell-lactase 3,000 unit capsule (Digestive Advantage Lactose Supprt) arginine HCl (L-arginine) 1,000 mg 1 mg PO .QD 03/04/25 04/11/25 History tablet budesonide 32 mcg/actuation nasal 1 spray intranasal QDAY 03/04/25 04/15/25 History spray multivitamin 1 tab PO QAM 03/04/25 04/11/25 History z binder 1 tab PO .QD 03/04/25 04/11/25 History omega 2-xku-xsl-fish oil 1,200 mg cap PO 04/07/25 04/11/25 History (144 mg-216 mg) capsule (Fish Oil) Allergy/AdvReac Type Severity Reaction Status Date / Time lactose Allergy Diarrhea Verified 04/15/25 08:52 Penicillins Allergy Hives Verified 04/15/25 08:52 Surgical History (Updated 04/15/25 @ 10:[address] Marquis Soto MD) S/P radioactive iodine thyroid ablation H/O benign breast biopsy Hx of colonoscopy Social History Smoking Status: Never smoker alcohol intake: current Patient's Goals Of Care . What would you like to achieve or improve as a result of your hospital stay?: . Vital Signs Vital Signs Vital Signs: 04/15/25 08:54 04/15/25 08:54 04/15/25 08:54 Temperature 98.1 F Temperature Source Temporal Pulse Rate 66 Respiratory Rate 18 Respiratory Pattern Normal Blood Pressure 112/65 Blood Pressure Mean 80 Blood Pressure Source Monitor Blood Pressure Position Semi-Fowlers Blood Pressure Location Right Arm Baseline BP 112/65 Pulse Ox 97 Oxygen Delivery Method Room Air 04/15/25 10:05 Temperature 98.1 F Temperature Source Pulse Rate 66 Respiratory Rate 18 Respiratory Pattern Blood Pressure 112/65 Blood Pressure Mean Blood Pressure Source Blood Pressure Position Blood Pressure Location Baseline BP Pulse Ox 97 Oxygen Delivery Method Room Air Weight Weight: 185 lb 3.013 oz Body Mass Index (BMI) 27.3 Physical Exam Const alert and oriented x3 Assessment & Plan Assessment/Plan (1) Positive colorectal cancer screening using Cologuard test: PLAN: Plan The patient is a 69-year-old male who is being seen today for colonoscopy. We discussed the details of the planned procedure and he wishes to proceed. This will begin shortly.
--- NOTE | 2025-04-15 11:01 | PCM.POST.ANE ---
Anesthesia: Postop Eval I Current Vital Signs Temperature: 97.2 F Pulse Rate: 65 Blood Pressure: 85/57 Respiratory Rate: 16 Pulse Ox: 95 Oxygen Delivery Method: Room Air Assessment Airway patent: Yes Spontaneous unlabored respirations: Yes Mental status: Awake and Calm nausea: No Vomiting: No Anesthesia Complication: No Fluid Hydration Crystalloid volume administer (ml): 300 Total IV fluid infused: 300 Progress Note Anesthesia document: Postop Eval 1 completed: Yes
--- NOTE | 2025-04-15 11:03 | OP.COLON_ITS ---
Patient Name: Dash Campa Procedure Date: 04/15/2025 10:19 AM Date of : 1955 Age: 69 Procedure: Colonoscopy Indications: Positive Cologuard test Providers: Joe Bermudez MD Referring MD: Joe Bermudez MD Medicines: Monitored Anesthesia Care Patient Profile: Refer to note in patient chart for documentation of history and physical. Last Colonoscopy: more than 10 years ago. Complications: No immediate complications. Estimated blood loss: Minimal. Procedure: Pre-Anesthesia Assessment: - Prior to the procedure, a History and Physical was performed, and patient medications and allergies were reviewed. The patient's tolerance of previous anesthesia was also reviewed. The risks and benefits of the procedure and the sedation options and risks were discussed with the patient. All questions were answered, and informed consent was obtained. Prior Anticoagulants: The patient has taken no anticoagulant or antiplatelet agents. ASA Grade Assessment: II - A patient with mild systemic disease. After reviewing the risks and benefits, the patient was deemed in satisfactory condition to undergo the procedure. After I obtained informed consent, the scope was passed under direct vision. Throughout the procedure, the patient's blood pressure, pulse, and oxygen saturations were monitored continuously. The Colonoscope was introduced through the anus and advanced to the cecum, identified by appendiceal orifice and ileocecal valve. The ileocecal valve, appendiceal orifice, and rectum were photographed. The entire colon was well visualized. The colonoscopy was performed without difficulty. The patient tolerated the procedure well. The quality of the bowel preparation was adequate. Moderate Sedation: See the other procedure note for documentation of moderate sedation with intraservice time. Scope In: 10:31:49 AM Scope Withdrawal Time 0 hours 14 minutes 56 seconds Scope Out: 10:54:44 AM Total Procedure Duration Time 0 hours 22 minutes 55 seconds Findings: The perianal and digital rectal examinations were normal. A 3 mm polyp was found in the cecum. The polyp was semi-sessile. The polyp was removed with a cold biopsy forceps. Resection and retrieval were complete. Verification of patient identification for the specimen was done by the nurse using the patient's name, date and medical record number. Estimated blood loss was minimal. The exam was otherwise without abnormality on direct and retroflexion views. Impression: - One 3 mm polyp in the cecum, removed with a cold biopsy forceps. Resected and retrieved. - The examination was otherwise normal on direct and retroflexion views. Recommendation: - Discharge patient to home (ambulatory). - High fiber diet. - Await pathology results. - Repeat colonoscopy in 5 years for surveillance. - Return to my office PRN. - Continue present medications. Procedure Code(s): --- Professional --- 10816, Colonoscopy, flexible; with biopsy, single or multiple Diagnosis Code(s): --- Professional --- R19.5, Other fecal abnormalities D12.0, Benign neoplasm of cecum CPT copyright 2021 [employer]. All rights reserved. The codes documented in this report are preliminary and upon weld inspector review may be revised to meet current compliance requirements. Joe Bermudez MD 04/15/2025 11:03:02 AM This report has been signed electronically. Number of Addenda: 0 Note Initiated On: 04/15/2025 10:19 AM
--- NOTE | 2025-04-15 11:03 | OP.PROVAT_ITS ---
04/15/2025 Enrique Woo Re : Colonoscopy procedure for Dash Romeror Kaye This procedure was performed on Tuesday, April 15, 2025. My impressions and recommendations are as follows: Impressions : - One 3 mm polyp in the cecum, removed with a cold biopsy forceps. Resected and retrieved. - The examination was otherwise normal on direct and retroflexion views. Recommendations : - Discharge patient to home (ambulatory). - High fiber diet. - Await pathology results. - Repeat colonoscopy in 5 years for surveillance. - Return to my office PRN. - Continue present medications. My findings are described in the full procedure note, which is enclosed. If I can be of further assistance, please feel free to contact me at . Sincerely, Joe Bermudez MD 04/15/2025 11:03:02 AM This report has been signed electronically.
--- NOTE | 2025-04-15 12:35 | POSTOPAN2_ITS ---
Anesthesia Postop Eval I Sum Postop Eval Completion status Anesthesia document: Postop Eval 1 completed: Yes Anesthesia Postop Eval I Summary Anesthesia Postop Eval I Summary: Anesthesia Postop Eval I: Assessment Summary Airway patent Yes 04/15/25 11:02 ENGINEERING [email or web address] Spontaneous unlabored Yes 04/15/25 11:02 ENGINEERING [email or web address] respirations Mental status Awake,Calm 04/15/25 11:02 ENGINEERING TECHNICIAN.GDOTT nausea No 04/15/25 11:02 ENGINEERING TECHNICIAN.GDOTT Vomiting No 04/15/25 11:02 ENGINEERING TECHNICIAN.[email or web address] Anesthesia Postop Eval I: Fluid Summary Crystalloid volume administer 300 04/15/25 11:02 ENGINEERING TECHNICIAN.[email or web address] (ml) Colloids volume administered ( ml) Blood Product volume administered (ml) Total IV fluid infused 300 04/15/25 11:02 ENGINEERING TECHNICIAN.[email or web address] Anesthesia Postop Eval I: Summary Notes Anesthesia Complication No 04/15/25 11:02 ENGINEERING [email or web address] Anesthesia Complication Comment: Post-operative progress note Anesthesia: Postop Eval II Evaluation Mental status: Awake and Calm Pain Level: 0 nausea: No Vomiting: No Complications Anesthesia Complication: No
--- NOTE | 2025-04-15 12:35 | PCM.POSTANE2 ---
Anesthesia Postop Eval I Sum Postop Eval Completion status Anesthesia document: Postop Eval 1 completed: Yes Anesthesia Postop Eval I Summary Anesthesia Postop Eval I Summary: Anesthesia Postop Eval I: Assessment Summary Airway patent Yes 04/15/25 11:02 FIELD [email or web address] Spontaneous unlabored Yes 04/15/25 11:02 FIELD SUPERVISOR.[email or web address] respirations Mental status Awake,Calm 04/15/25 11:02 FIELD SUPERVISOR.[email or web address] nausea No 04/15/25 11:02 FIELD SUPERVISOR.GDOTT Vomiting No 04/15/25 11:02 FIELD SUPERVISOR.[email or web address] Anesthesia Postop Eval I: Fluid Summary Crystalloid volume administer 300 04/15/25 11:02 FIELD SUPERVISOR.GDOTT (ml) Colloids volume administered ( ml) Blood Product volume administered (ml) Total IV fluid infused 300 04/15/25 11:02 FIELD SUPERVISOR.[email or web address] Anesthesia Postop Eval I: Summary Notes Anesthesia Complication No 04/15/25 11:02 FIELD SUPERVISOR.GDOTT Anesthesia Complication Comment: Post-operative progress note Anesthesia: Postop Eval II Evaluation Mental status: Awake and Calm Pain Level: 0 nausea: No Vomiting: No Complications Anesthesia Complication: No
== END 2025-04-15 11:38 | disposition home or self-care (01) ==
LOC: EN 08:38 → AC 08:39
PROVIDERS: PCP Physician Assistant; Referring Provider Surgery; Visit Provider Surgery
PROC: 0DJD8ZZ Inspection of Lower Intestinal Tract, Via Natural or Artificial Opening Endoscopic (ICD-10-PCS; CPT 45378; principal; 2025-04-15 09:55)
DX: D12.0 Benign neoplasm of cecum (principal); E03.9 Hypothyroidism, unspecified; Z79.890 Hormone replacement therapy
CPT/HCPCS: 45380; 88305; J2405